=== PATIENT | female | born 1980 | race American Indian/Alaskan Native ===

== ENCOUNTER 2016-08-06 05:14 | Emergency (ER) | payer MEDICAID, OTHER ==
[2016-08-06 05:24] VITALS: BP 134/86
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
[2016-08-06 06:07] LABS: CHLORIDE,CL 108 mmol/L (101-111); SODIUM,NA 140 mmol/L (135-145)
[2016-08-06 06:09] LABS: ACETAMINOPHEN < 10
[2016-08-06] MEDS ORDERED: Acetaminophen 325 MG Tab PO ONE (07:25)
== END 2016-08-06 07:40 | disposition home or self-care (01) ==
LOC: DL.ED 05:14
DX: T74.21XA Adult sexual abuse, confirmed, initial encounter (principal); S00.03XA Contusion of scalp, initial encounter; S00.12XA Contusion of left eyelid and periocular area, initial encounter; S00.432A Contusion of left ear, initial encounter; S00.431A Contusion of right ear, initial encounter; H57.8 Other specified disorders of eye and adnexa; F17.210 Nicotine dependence, cigarettes, uncomplicated; Z79.899 Other long term (current) drug therapy
CPT/HCPCS: 36415; 80053; 80305; 81001; 83690; 83735; 84703; 85025; 87389; 87491; 87591; 99284; 99285; A9270; G0480

== ENCOUNTER 2024-12-24 15:57 | Emergency (ER) | payer BC, MEDICAID, OTHER ==
[2024-12-24] MEDS: Orphenadrine 60 MG/2 ML Inj IM ONE (16:27)
[2024-12-24 18:38] VITALS: BP 145/83; PULSE 98
== END 2024-12-24 18:27 | disposition home or self-care (01) ==
LOC: DL.ED 15:57
DX: S39.012A Strain of muscle, fascia and tendon of lower back, initial encounter (principal); Z79.899 Other long term (current) drug therapy; X50.1XXA Overexertion from prolonged static or awkward postures, initial encounter
CPT/HCPCS: 72128; 72131; 96372; 99284; A9270; J2360; 99283